=== PATIENT | female | born 1955 | race Hispanic/Latino ===

== ENCOUNTER → 2024-08-27 | Day surgery (SDC) | payer MEDICARE ==
[2024-08-24 15:22] LABS: BASOPHILS % 0.3 % (0.0-1.0); EOSINOPHILS # (AUTO) 0.1 (0.0-0.4); EOSINOPHILS % 2.2 % (0.0-6.0); HEMATOCRIT 36.2 % (34.2-44.1); HEMOGLOBIN 12.4 g/dL (12.0-16.0); LYMPHOCYTES # (AUTO) 1.4 (1.0-3.2); LYMPHOCYTES % 37.1 % (18.0-39.1); MEAN CORPUSCULAR HEMOGLOBIN 30.5 pg (28-32); MEAN CORPUSCULAR HGB CONC 34.3 g/dL (31-35); MEAN CORPUSCULAR VOLUME 89.2 fL (81-99); MONOCYTES # (AUTO) 0.4 (0.2-0.8); MONOCYTES % 11.3 % (4.4-11.3); NEUTROPHILS # (AUTO) 1.8 (2.1-6.9); NEUTROPHILS % 48.8 % (38.7-80.0); PLATELET COUNT 191 x10e3/uL (140-360); RED BLOOD COUNT 4.06 x10e6/uL (3.6-5.1); RED CELL DISTRIBUTION WIDTH 12.3 % (11.7-14.4); WHITE BLOOD COUNT 3.72 x10e3/uL (4.8-10.8)
[~2024-08-27] MED LIST: ACETAMINOPHEN 1000 MG/100 ML IV PRN; AMLODIPINE BESYL5 MG PO; ASPIRIN 325 MG TAB PO SCH; ASPIRIN81 MG PO; B12; CELECOXIB 100 MG CAP PO SCH; CYMBALTA30 MG; DIPHENHYDRAMINE HCL INJ 50 MG/ML VIAL IV PRN; DOCUSATE SODIUM 100 MG CAP PO PRN; HYDROCODONE/APAP 5MG-325MG TAB PO PRN; ONDANSETRON HCL INJ 2MG/ML 2ML 2 MG/ML VIAL IV PRN; ROPIVACAINE/EPI/CLONIDINE/KET 50 ML SYRINGE INJ ONE; SODIUM CHLORIDE 0.9% 1000ML 1,000 ML IV SCH; SODIUM CHLORIDE 0.9% 500ML 500 ML ONE; TRANEXAMIC ACID 20 ML ONE; VITAMIN D; Vancomycin IV 500 MG ONE; WOMEN'S DAILY1 EACH
[2024-08-27] MEDS: CEFAZOLIN SODIUM 2 GM ONE (07:36)
[2024-08-27] MEDS: CELECOXIB 200 MG CAP ONE (07:36)
[2024-08-27] MEDS: GABAPENTIN 300 MG CAP ONE (07:37)
[2024-08-27] MEDS: DEXAMETHASONE SOD PHOS 10 MG/1 ML VIAL ONE (07:37)
[2024-08-27] MEDS: LACTATED RINGER'S 1,000 ML ONE (07:37)
[2024-08-27] MEDS: KETOROLAC TROMETHAMINE 30 MG/ML VIAL ONE (12:25)
[2024-08-27] MEDS: HYDROCODONE/APAP 7.5MG-325MG 1 EA TAB PO PRN (12:30)
[2024-08-27] MEDS: ONDANSETRON HCL INJ 2MG/ML 2ML 2 MG/ML VIAL ONE ×2 (12:59→16:44)
[2024-08-27 15:45] VITALS: BP 105/60; PULSE 78; RESP 16; O2SAT 95
[2024-08-27] MEDS: HYDROCODONE/APAP 7.5MG-325MG 1 EA TAB ONE (16:55)
== END | disposition home health service (06) ==
LOC: OR 06:45
PROVIDERS: ATTEND Specialist
DX: M17.11 Unilateral primary osteoarthritis, right knee (principal); I10 Essential (primary) hypertension; Z71.3 Dietary counseling and surveillance; Z71.82 Exercise counseling; Z01.812 Encounter for preprocedural laboratory examination; Z79.899 Other long term (current) drug therapy; Z79.82 Long term (current) use of aspirin
CPT/HCPCS: 27447; 36415; 73560; 85025; 86850; 86900; 97116 ×2; 97162; 97530; C1713 ×2; C1776 ×2; J0690 ×2; J1100; J1885; J2405; J2795; J3370; J7040; J7121